=== PATIENT | female | born 1965 | race Caucasian/White ===

== ENCOUNTER → 2021-02-23 13:20 | Outpatient (CLI) | payer SELFPAY ==
--- NOTE | 2021-02-23 | DI.MG.S_ITS ---
BILATERAL DIGITAL DIAGNOSTIC MAMMOGRAM 3D/2D: 02/23/2021 CLINICAL: Right breast nodule seen on CT scan on 11/19/2020. Comparison is made to exams dated: 08/21/2012 mammogram, 08/26/2014 mammogram, 10/07/2015 mammogram, and 11/19/2020 CT chest/abdomen/pelvis- outside facility. There are scattered fibroglandular elements in both breasts. There is a 1.7 cm x 0.9 cm oval equal density mass in the right breast at 6 o'clock middle depth. This is not significantly changed since 2013 mammogram and correlates with mass described on recent CT chest. It's stability over time is consistent with benign process. No other significant masses, calcifications, or other findings are seen in either breast. IMPRESSION: BENIGN There is no mammographic evidence of malignancy. A 1 year screening mammogram is recommended. Findings and recommendations were conveyed to the patient during today's evaluation. This exam was interpreted at Station ID: [id number]. NOTE: For mammograms, a report in lay terms will be sent to the patient. Approximately 15% of breast malignancies will not be visualized mammographically. In the management of a palpable breast mass, a negative mammogram must not discourage biopsy of a clinically suspicious lesion. Electronically Signed By: Emir Grant M.D. aty/:02/23/2021 14:14:32 letter sent: Normal Exam ACR BI-RADS Category 2: Benign Finding(s) 3342F
== END ==
PROVIDERS: PCP Internal Medicine; Referring Provider Internal Medicine; Visit Provider Internal Medicine
DX: N60.01 Solitary cyst of right breast (principal); N64.4 Mastodynia
CPT/HCPCS: 77066; G0279